=== PATIENT | female | born 1960 | race Caucasian/White ===

== ENCOUNTER 2018-02-23 13:58 | Observation (INO) | payer BC, SELFPAY ==
[2018-02-23 14:03] VITALS: BP 158/77; PULSE 95; RESP 18; TEMP 36.8; O2SAT 100; BMI 28.1
--- NOTE | 2018-02-23 14:16 | ED.CHESTPAIN ---
HPI - Chest Pain General Chief Complaint: Chest Pain Stated Complaint: Chest Pain Time Seen by Provider: 02/23/18 14:16 Source: patient Mode of arrival: EMS Limitations: no limitations History of Present Illness HPI narrative: 57-year-old female here for evaluation of chest pain. Patient states that approximately 930 this morning she had an onset of chest pain. She says it was a fairly sudden onset reaches its maximum intensity fairly quickly. She states that it occurred after she had a verbal argument with 1 of her neighbors. She states that it did improve somewhat but never really went away. She said that she went to go take a shower after the shower she had a recurrence of the pain worse than what it was before. Pain did not change with movement or palpation or deep breaths. She had no other symptoms with it to include palpitations or shortness of breath. She states the pain did radiate to the left side of her neck and down her left arm. She called EMS. She states that her pain significantly improved when EMS placed nitro paste on her. At the time of my evaluation she was essentially symptom free. She did receive an aspirin prior to arrival here in the emergency department by EMS Related Data Home Medications Medication Instructions Recorded Confirmed Calcium 1 tab PO DAILY 02/23/18 02/23/18 Probiotic 1 cap PO DAILY 02/23/18 02/23/18 multivitamin 1 tab PO DAILY 02/23/18 02/23/18 Allergies Allergy/AdvReac Type Severity Reaction Status Date / Time Penicillins Allergy Verified 02/23/18 14:23 Sulfa (Sulfonamide Allergy Verified 02/23/18 14:23 Antibiotics) Review of Systems Constitutional Denies fatigue and Denies fever(s) ENT Ears, Nose, Mouth, and Throat: Denies vertigo Cardiovascular Reports chest pain, Reports chest pain at rest, Denies diaphoresis, Denies irregular heart rhythm, Reports leg edema ( but this is not new for her), Denies palpitations and Denies dyspnea Respiratory Denies chest congestion, Denies cough, Denies dyspnea and Denies wheezing Gastrointestinal Gastrointestinal: Denies abdominal pain, Denies constipation, Denies diarrhea, Denies nausea and Denies vomiting Genitourinary Denies dysuria Musculoskeletal Denies myalgias and Denies arthralgias Integumentary/Breasts Denies lesions and Denies rash Neurologic Denies confusion and Denies vertigo Psychiatric Denies confusion Endocrine Denies fatigue and Denies palpitations Hematologic/Lymphatic Denies easy bleeding and Denies easy bruising Allergic/Immunologic Denies urticaria and Denies wheezing [facility] Medical History H/O: hysterectomy (Acute) Social History household members: spouse Smoking Status: Current every day smoker Exam Initial Vital Signs Initial Vital Signs: Vital Signs Temperature 98.2 F 02/23/18 14:03 Pulse Rate 95 H 02/23/18 14:03 Respiratory Rate 18 02/23/18 14:03 Blood Pressure 158/77 H 02/23/18 14:03 Pulse Oximetry 100 02/23/18 14:03 Const General: cooperative, healthy appearing, comfortable, well developed, well groomed and No acute distress Orientation: alert, awake and oriented x3 HENMT Head: normal to inspection, normocephalic and atraumatic Chest Chest: normal inspection of the chest Resp Effort & Inspection: normal respiratory effort Auscultation: clear to auscultation bilaterally Cardio Palpation: normal PMI Rate: regular rate Rhythm: regular rhythm Pulses: radial pulses present GI Inspection: normal to inspection and non-distended Palpation: soft, No firm and No tender Skin Lesions: no lesions Rashes: no rashes Neuro General: alert, awake and oriented x3 Cognition: normal cognition Speech: speech normal Motor: muscle tone normal throughout Sensory Exam: no sensory deficits noted Extrem General: normal to inspection and capillary refill normal Psych Appearance: grossly normal and well kempt Course Orders Ordered: ED Orders 02/23/18 14:05 Basic Metabolic Panel Stat Complete Blood Count AUTO DIFF Stat Partial Thromboplastin Time Stat Prothrombin Time INR Stat Troponin I Stat 02/23/18 14:17 XR chest 1V Stat EKG-12 Lead Stat 02/23/18 22:00 Troponin I Routine 02/24/18 05:00 Basic Metabolic Panel Routine Troponin I Routine 02/24/18 06:00 Lipid Panel w/ VLDL Calc Routine Aspirin (Aspirin Ec) 325 mg PO DAILY ANTHONY Nitroglycerin (Nitrostat) 0.4 mg SL [id number] PRN PRN Reason: Chest Pain Discontinued Medications Aspirin (Aspirin Chew) 324 mg PO NOW ONE Stop: 02/23/18 14:17 Last Admin: 02/23/18 14:24 Dose: Not Given Vital Signs - 8 hr 02/23/18 14:03 02/23/18 15:19 02/23/18 16:38 Temperature 98.2 F Pulse Rate 95 H 85 80 Respiratory Rate 18 12 17 Blood Pressure 158/77 H Blood Pressure [Left Arm] 105/56 L 105/64 Pulse Oximetry 100 98 100 02/23/18 17:00 Temperature 97.7 F Pulse Rate 77 Respiratory Rate 16 Blood Pressure 121/67 H Blood Pressure [Left Arm] Pulse Oximetry 100 MDM - Chest Pain Lab Data Attestation: I reviewed the patient's lab results. Result diagrams: 02/23/18 14:05 02/23/18 14:05 Lab Results 02/23/18 02/23/18 02/23/18 Range/Units 14:05 14:05 14:05 WBC 11.3 H (4.5-11.0) X10^3/uL RBC 4.99 (4.0-5.2) X10^6/uL Hgb 12.6 (12.0-16.0) g/dL Hct 38.5 (36-46) % MCV 77.1 L (80-100) fL MCH 25.2 L (26-34) PG MCHC 32.7 (30-36) % RDW 14.8 (11.6-14.8) % Plt Count 205 (150-400) X10^3/uL Neut % (Auto) 51.7 (50-75) % Lymph % (Auto) 38.9 (25-40) % [place] % (Auto) 7.5 (3-14) % Eos % (Auto) 1.3 L (2-4) % Baso % (Auto) 0.6 (0-2) % Neut # (Auto) 5900 (4472-3993) /uL PT 11.6 (10.1-12.7) SECONDS INR 1.1 (0.9-1.3) APTT 34 (26.4-36.2) SECONDS Sodium 144 (137-145) mmol/L Potassium 3.5 (3.4-5.1) mmol/L Chloride 108 H (98-107) mmol/L Carbon Dioxide 24 (22-32) mmol/L BUN 15 (7-17) mg/dL Creatinine 1.20 H (0.52-1.04) mg/dL Estimated GFR 46.5 L (>60) mL/min BUN/Creatinine Ratio 12.5 (6-22) Glucose 126 H (70-100) mg/dL Calcium 10.3 H (8.4-10.2) mg/dL Troponin I < 0.012 (0.01-0.034) ng/mL Imaging Data Chest x-ray: Radiologist's impression: PROCEDURE: XR CHEST 1V INDICATIONS: Chest pain TECHNIQUE: One view of the chest was acquired. COMPARISON: None. FINDINGS: Surgical changes and devices: None. Lungs and pleura: No pleural effusions or pneumothorax. Lungs are clear. Mediastinum: Mediastinal contours appear normal. Heart size is normal. Bones and chest wall: No suspicious bony lesions. Overlying soft tissues appear unremarkable. IMPRESSION: Normal chest. Source of chest pain not seen. Dictated by: Lazaro Dunn M.D. on 02/23/2018 at 14:57 Approved by: Lazaro Dunn M.D. on 02/23/2018 at 14:58 ECG Data Attestation: I personally reviewed and interpreted this ECG as follows: Prior ECG tracings: available for review Interpretation: EKG obtained by EMS showed sinus tachycardia with a rate of [address] T wave changes EKG obtained 23 February 2018 time 1407 hr sinus rhythm ventricular rate at 80 Normal axis normal intervals Normal QRS inverted T-waves in V1 and V2 nonspecific ST T wave changes MDM Narrative Medical decision making narrative: patient was chest pain-free at the time of my evaluation. She did have nitro paste on her anterior chest. patient was symptomatic at the time of the EKG obtained by EMS and asymptomatic at the time of the EKG here in the emergency department. There were no changes between these 2 EKGs. Initial troponin was negative however this was less than 6 hr after the onset of her symptoms. She did have retrosternal chest pressure that radiated to her neck and her left arm. Given her history and physical exam and nonspecific EKG changes will admit to the hospital for further cardiac evaluation. Discussed the case with Dr. Aquino who accepts the patient in observation. I discussed admission with the patient and her who is at bedside who both expressed understanding and agreement with plan. Discharge Plan Departure Patient Disposition: Admitted as Observation Clinical Impression: Chest pain Discharge Date/Time: 02/23/18 17:09 Interventions: ED Discharge Assessment Last Done: 02/23/18 17:07 Admit Date/Time: 02/23/18 16:34 Admit Provider: Wellington Aquino
[2018-02-23 14:30] LABS: INR 1.1 (0.9-1.3); Prothrombin Time 11.6 SECONDS (10.1-12.7)
[2018-02-23 14:32] LABS: PTT Partial Thromboplastin Tim 34 SECONDS (26.4-36.2)
[2018-02-23 14:33] LABS: Add Manual Diff / Slide Review NO; Basophils Percent Auto 0.6 % (0-2); Eosinophils Percent Auto 1.3 % (2-4); Hematocrit 38.5 % (36-46); Hemoglobin 12.6 g/dL (12.0-16.0); Lymphocytes Percent Auto 38.9 % (25-40); Mean Corpuscular HGB Conc 32.7 % (30-36); Mean Corpuscular Hemoglobin 25.2 PG (26-34); Mean Corpuscular Volume 77.1 fL (80-100); Monocytes Percent Auto 7.5 % (3-14); Neutrophils Absolute Auto 5900 /uL (3000-5900); Neutrophils Percent Auto 51.7 % (50-75); Platelet Count 205 X10^3/uL (150-400); Red Blood Cell Count 4.99 X10^6/uL (4.0-5.2); Red Cell Distribution Width 14.8 % (11.6-14.8); White Blood Cell Count 11.3 X10^3/uL (4.5-11.0)
[2018-02-23 14:34] LABS: BUN Creatinine Ratio 12.5 (6-22); Blood Urea Nitrogen 15 mg/dL (7-17); Calcium 10.3 mg/dL (8.4-10.2); Carbon Dioxide 24 mmol/L (22-32); Chloride 108 mmol/L (98-107); Estimated Glomerular Filt Rate 46.5 mL/min (>60); Glucose 126 mg/dL (70-100); HEMOLYSIS < 15 (0-50); Potassium 3.5 mmol/L (3.4-5.1); Sodium 144 mmol/L (137-145)
[2018-02-23 14:53] LABS: Troponin I < 0.012 ng/mL (0.01-0.034)
[2018-02-23 15:19] VITALS: BP 105/56; PULSE 85; RESP 12; O2SAT 98
[2018-02-23 16:38] VITALS: BP 105/64; PULSE 80; RESP 17; O2SAT 100
[2018-02-23 17:00] VITALS: BP 121/67; PULSE 77; RESP 16; TEMP 36.5; O2SAT 100; BMI 28.1
--- NOTE | 2018-02-23 17:06 | PC.NURSE ---
per provider patient ok to go upstairs without telemetry. no new orders at this time.
--- NOTE | 2018-02-23 17:56 | PC.NURSE ---
Pt admitted to room 212 from [facility] awake and alert. Taking diet well with family present @ bedside. Pt denies chest pain. Was instructed to alert staff if pain returns. Pt acknowledges understanding and agreement.
--- NOTE | 2018-02-23 19:01 | PM.HP.1 ---
History of Present Illness Date Patient Seen: 02/23/18 Time Patient Seen: 19:01 Chief complaint: CHEST PAIN Narrative: 57-year-old female whose had chest pain today initially onset while she was arguing with a neighbor and then the pain went away and then it came back again after she was in the house for about 0.5 hr the pain is a substernal radiation to the neck and this persisted until she went to the emergency room and got better with nitro paste. Currently without chest pain. No prior history of heart disease no other complaints. Patient History Medical History H/O: hysterectomy (Acute) Family & Social History Social History: household members spouse Prior Living Arrangements RV Safety & Behavioral: Feels Safe in Current Yes Environment Been Physically Hurt or No Threatened By a Person Suicidal Ideation Description None Suicide Plan Description No Plan Tobacco & Substance use: Tobacco type cigarettes Smoking Status Current every day smoker Smoking packs per day 0.5 alcohol intake frequency holiday/special occasion Substance Use Type does not use Meds Home Medications Medication Instructions Recorded Confirmed Type Calcium 1 tab PO DAILY 02/23/18 02/23/18 History Probiotic 1 cap PO DAILY 02/23/18 02/23/18 History multivitamin 1 tab PO DAILY 02/23/18 02/23/18 History Allergies Allergy/AdvReac Type Severity Reaction Status Date / Time Penicillins Allergy Verified 02/23/18 14:23 Sulfa (Sulfonamide Allergy Verified 02/23/18 14:23 Antibiotics) Review of Systems Review of Systems All systems reviewed & are unremarkable except as noted in HPI and below Exam Vital Signs (past 8 hours): - 02/23/18 14:03 02/23/18 15:19 02/23/18 16:38 Temperature 98.2 F Pulse Rate 95 H 85 80 Respiratory Rate 18 12 17 Blood Pressure 158/77 H Blood Pressure [Left Arm] 105/56 L 105/64 Pulse Oximetry 100 98 100 02/23/18 17:00 Temperature 97.7 F Pulse Rate 77 Respiratory Rate 16 Blood Pressure 121/67 H Blood Pressure [Left Arm] Pulse Oximetry 100 Oxygen Delivery Method Room Air Narrative Exam Narrative: Pleasant female no acute distress HEENT exam unremarkable Neck is supple no bruits no JVD no thyromegaly Lungs are clear to auscultation Heart regular rhythm Abdomen obese nontender bowel sounds present Lower extremities no edema Skin warm and dry Neuro exam awake alert oriented x3 speech normal no focal motor or sensory deficits Objective Labs Result Diagrams: 02/23/18 14:05 02/23/18 14:05 Labs: Laboratory Results - last 24 hr 02/23/18 02/23/18 02/23/18 14:05 14:05 14:05 WBC 11.3 H RBC 4.99 Hgb 12.6 Hct 38.5 MCV 77.1 L MCH 25.2 L MCHC 32.7 RDW 14.8 Plt Count 205 Neut % (Auto) 51.7 Lymph % (Auto) 38.9 [place] % (Auto) 7.5 Eos % (Auto) 1.3 L Baso % (Auto) 0.6 Neut # (Auto) 5900 PT 11.6 INR 1.1 APTT 34 Sodium 144 Potassium 3.5 Chloride 108 H Carbon Dioxide 24 BUN 15 Creatinine 1.20 H Estimated GFR 46.5 L BUN/Creatinine Ratio 12.5 Glucose 126 H Calcium 10.3 H Troponin I < 0.012 Assessment & Plan Plan: Assessment/Plan Narrative: One. Chest pain nonspecific T-wave inversion V1 V2 no other acute changes. Troponin initially negative. Placed patient will be placed on observation for rule out LA per serial troponin will be checked and patient on telemetry. Probable discharge tomorrow morning. Quality VTE Deep Vein Thrombosis/Pulmonary Embolism Present on Admission: No
[2018-02-23 21:13] VITALS: BP 120/67; PULSE 72; RESP 16; TEMP 37; O2SAT 97
[2018-02-23] MEDS: NICOTINE 14 PATCH 14 MG TOP (21:35)
[2018-02-23] MEDS: SODIUM CHLORIDE 0.9% FLUSH 10 ML IV (21:36)
[2018-02-23 22:54] LABS: Troponin I < 0.012 ng/mL (0.01-0.034)
[2018-02-24] VITALS: BP 112/72; PULSE 77; RESP 16; TEMP 36.6; O2SAT 96
--- NOTE | 2018-02-24 00:39 | PC.NURSE ---
Addendum entered by Ramona Connelly R.N. 02/24/18 06:12: Slept most of night. Continued in SR on telemetry reading at 0400. Does complain of 6/10 headache this morning but declines pain medication. Believes headache related to lack of food as states didn't eat much yesterday; provided with snack since lab has been here to draw blood for lipid panel this morning. Original Note: Patient is alert and oriented. Breath sounds CTA with RA sat of 96%. HRR and was SR at 0000 telemetry reading. Denies nausea. BT present and abdomen is soft. Independent with mobility. Denies any urinary problems/incontinence. Denies any pain. Is fasting for lab draw in a.m.; verbalizes understanding. Fall risk score is low.
[2018-02-24 05:54] VITALS: BP 111/74; PULSE 78; RESP 16; TEMP 36.3; O2SAT 96
[2018-02-24 06:04] LABS: HEMOLYSIS < 15 (0-50)
[2018-02-24 06:10] LABS: BUN Creatinine Ratio 13.6 (6-22); Blood Urea Nitrogen 15 mg/dL (7-17); Calcium 9.4 mg/dL (8.4-10.2); Carbon Dioxide 26 mmol/L (22-32); Chloride 108 mmol/L (98-107); Estimated Glomerular Filt Rate 51.4 mL/min (>60); Glucose 102 mg/dL (70-100); Sodium 145 mmol/L (137-145)
[2018-02-24 06:23] LABS: Cholesterol 195 mg/dL (140-199); HDL Cholesterol 42 mg/dL (40-60); LDL Cholesterol Calculated 117 mg/dL (<100); Triglycerides 179 mg/dL (35-150); VLDL Cholesterol Calculated 36 mg/dL (2-30)
[2018-02-24 06:25] LABS: Troponin I < 0.012 ng/mL (0.01-0.034)
[2018-02-24 08:34] VITALS: BP 119/70; PULSE 78; RESP 16; TEMP 36.6; O2SAT 96
--- NOTE | 2018-02-24 08:52 | CM.DANOTE ---
Discharge Planning/Care Management DCP: assessment: case received, EMR reviewed and met with pt. Introduced self and role. Pt is a 57 year old female who admitted to care of hospitalist team [id number] yesterday. Payer: [employer] Pt confirms that Dr. Aquino is testing for a ? SC and she is hopeful all will be fine and she will be able to go home today. Pt says her is here, has gone to the cafeteria with her daughter Pierre (works as records analysis manager of [employer]). P: follow prn for any d/c needs that may arise. Home today if SC is ruled out. CM Discharge Assessment Start: 02/24/18 08:50 Freq: Status: Active Protocol: Document 02/24/18 08:50 ITV (Rec: 02/24/18 08:51 ITV [id number]) Discharge Planning Assessment History Provided By Patient Medical Record Is this patient on Medicare? No Household Members spouse Independent with ADL's Yes Is patient alert and oriented? Yes Caregiver for Another No Review Status In Process Next Review Type Continued Stay Review
--- NOTE | 2018-02-24 08:56 | PM.DS.1 ---
History of Present Illness Date Patient Seen: 02/24/18 Time Patient Seen: 08:56 Chief complaint: CHEST PAIN Narrative: 57-year-old female whose had chest pain today initially onset while she was arguing with a neighbor and then the pain went away and then it came back again after she was in the house for about 0.5 hr the pain is a substernal radiation to the neck and this persisted until she went to the emergency room and got better with nitro paste which was administered in route by the EMS. Currently without chest pain. No prior history of heart disease no other complaints. Discharge Providers Date of admission: 02/23/18 16:34 Discharge provider: OWEN Ortiz Summary Discharge Diagnosis: 1. Chest pain 2. Tobacco dependence Hospital Course: This is a summary of an overnight stay for this pleasant 57-year-old female patient who was admitted with complaints of chest pain. EKG showed T-wave inversions in leads V1 and V2 and nonspecific ST T wave changes. No other acute changes. She has been pain free since admission to the [facility] and she has had 3 negative troponin levels. The only change her medications that she has been placed on aspirin 81 mg q.day. She will need to be followed up with her primary care provider for an outpatient exercise stress test. She has also been given information about smoking cessation. Status at Discharge Functional status at discharge: independent ambulation Overall status at discharge: patient is back to baseline Time Spent with Patient Less than 30 minutes Exam Vital Signs (past 8 hours): - 02/24/18 05:54 02/24/18 08:34 Temperature 97.3 F L 98 F Pulse Rate 78 78 Respiratory Rate 16 16 Blood Pressure 111/74 119/70 Pulse Oximetry 96 96 Oxygen Delivery Method Room Air Oxygen Flow Rate 0 Narrative Exam Narrative: Sitting up in bed pain-free. Const General: cooperative, healthy appearing, comfortable, well developed and well groomed Nutritional Appearance: average body habitus Orientation: alert, awake and oriented x3 HENMT Head: normal to inspection, normocephalic and atraumatic Eyes General: appearance normal, both eyes and all related structures Pupils: PERRL Neck Neck: normal visual inspection, trachea midline and supple Other: No JVD or lymphadenopathy Chest Chest: normal inspection of the chest Resp Effort & Inspection: normal respiratory effort and able to speak in complete sentences Auscultation: clear to auscultation bilaterally Cardio Rate: regular rate Rhythm: regular rhythm Heart Sounds: S1 normal and S2 normal Other: Telemetry shows no unusual cardiac events. Normal sinus rhythm 80s to 90s. GI Inspection: normal to inspection Palpation: soft Auscultation: normal bowel sounds Other: No masses or tenderness Other: Voiding independently Back/Spine/Pelvis Back: normal to inspection Skin General: no rashes or lesions noted, dry skin and warm Neuro General: alert, awake and oriented x3 Cognition: normal cognition Speech: speech normal Gait: normal gait Motor: muscle tone normal throughout Sensory Exam: no sensory deficits noted Extrem General: normal to inspection, capillary refill normal, no pedal edema and no calf tenderness Psych Appearance: grossly normal Mental Status: mental status grossly normal Speech and Movement: speech and movement normal Mood: congruent mood Affect: normal affect Attitude: cooperative Thought Process: normal Thought Content: normal Judgment: judgment good Objective Labs Result Diagrams: 02/23/18 14:05 02/24/18 05:45 Labs: Laboratory Results - last 24 hr 02/23/18 02/23/18 02/23/18 14:05 14:05 14:05 WBC 11.3 H RBC 4.99 Hgb 12.6 Hct 38.5 MCV 77.1 L MCH 25.2 L MCHC 32.7 RDW 14.8 Plt Count 205 Neut % (Auto) 51.7 Lymph % (Auto) 38.9 [place] % (Auto) 7.5 Eos % (Auto) 1.3 L Baso % (Auto) 0.6 Neut # (Auto) 5900 PT 11.6 INR 1.1 APTT 34 Sodium 144 Potassium 3.5 Chloride 108 H Carbon Dioxide 24 BUN 15 Creatinine 1.20 H Estimated GFR 46.5 L BUN/Creatinine Ratio 12.5 Glucose 126 H Calcium 10.3 H Troponin I < 0.012 Triglycerides Cholesterol LDL Cholesterol, Calc VLDL Cholesterol HDL Cholesterol 02/23/18 02/24/18 02/24/18 22:13 05:35 05:45 WBC RBC Hgb Hct MCV MCH MCHC RDW Plt Count Neut % (Auto) Lymph % (Auto) [place] % (Auto) Eos % (Auto) Baso % (Auto) Neut # (Auto) PT INR APTT Sodium 145 Potassium 4.0 Chloride 108 H Carbon Dioxide 26 BUN 15 Creatinine 1.10 H Estimated GFR 51.4 L BUN/Creatinine Ratio 13.6 Glucose 102 H Calcium 9.4 Troponin I < 0.012 < 0.012 Triglycerides 179 H Cholesterol 195 LDL Cholesterol, Calc 117 H VLDL Cholesterol 36 H HDL Cholesterol 42 PROCEDURE: XR CHEST 1V INDICATIONS: Chest pain TECHNIQUE: One view of the chest was acquired. COMPARISON: None. FINDINGS: Surgical changes and devices: None. Lungs and pleura: No pleural effusions or pneumothorax. Lungs are clear. Mediastinum: Mediastinal contours appear normal. Heart size is normal. Bones and chest wall: No suspicious bony lesions. Overlying soft tissues appear unremarkable. IMPRESSION: Normal chest. Source of chest pain not seen. Dictated by: Lazaro Dunn M.D. on 02/23/2018 at 14:57 Approved by: Lazaro Dunn M.D. on 02/23/2018 at 14:58 Discharge Plan Discharge Plan Patient Disposition: Home, Self-Care Discharge comment: Will need to follow up with primary care provider for outpatient exercise stress test. Provider Discharge Instructions Diet: Diet as Tolerated Diet comment: Heart healthy/cardiac diet Activity: Up ad isai Oxygen: Room air Wound Care Report to your healthcare provider any signs of infection, such as:: increased pain Discharge Data Attending Provider: Wellington Aquino Admit Date/Time: 02/23/18 16:34 Quality VTE Deep Vein Thrombosis/Pulmonary Embolism Present on Admission: No
[2018-02-24] MEDS: ASPIRIN EC 325 MG TABLET PO (09:09)
== END 2018-02-24 10:52 | disposition home or self-care (01) ==
LOC: ED 15:42 → AC 16:36
PROVIDERS: Admitting Provider Internal Medicine; Emergency Provider Emergency Medicine; Visit Provider Internal Medicine
DX: R07.9 Chest pain, unspecified (principal); F17.210 Nicotine dependence, cigarettes, uncomplicated
CPT/HCPCS: 36415; 71045; 80048; 80061; 84484; 85025; 85610; 85730; 93005; 93041; 99283; 99285; G0378

== ENCOUNTER → 2018-05-10 08:02 | Outpatient (CLI) | payer BC, SELFPAY ==
--- NOTE | 2018-05-10 09:32 | PM.TREADMILL ---
Cardiac Stress Test Report Referral & Results Date Patient Seen: 05/10/18 Requesting provider: Brendon Moran Indication: Chest pain Rest ECG: Unremarkable Procedure Note: Today following both written and verbal informed consent the patient was exercised according to a standard [place] protocol patient went for a total of 4 min 8 sec achieving a maximum heart rate of 155 maximum systolic blood pressure of 150 to. This is approximately 7.0 METS. Exercise was terminated at this point because of 3+ chest discomfort and inability of patient to continue. Patient was also given Cardiolite through a previously started Hep-Lock IV by the food equipment service technician approximately 1 minute prior to the cessation of exercise. With exercise patient did developed initially upsloping then it became flat ST segment depression the maximize to just over mm in the inferior leads as well as some more minor changes in leads V4 through V6, 1 in recovery these became flat downsloping then frankly downsloping ST segment changes in the same leads Rare PVC was identified only in recovery Normal heart rate and blood pressure response to exercise Functional aerobic impairment rated 25% on the sedentary scale Impression: ECG evidence of ischemia in inferior leads with some changes in leads V4 through V6 as well. This did coincide with onset of patient's symptoms Perfusion imaging will also be available and reported separately Patient had diminishing symptoms prior to the discontinuation of the monitoring and had returned to normal. Please note: Actual ECG tracings can be found in the PACS system.
--- NOTE | 2018-05-10 09:35 | P.PCN_ITS ---
Cardiac Stress Test Report Referral & Results Date Patient Seen: 05/10/18 Requesting provider: Brendon Moran Indication: Chest pain Rest ECG: Unremarkable Procedure Note: Today following both written and verbal informed consent the patient was exercised according to a standard [place] protocol patient went for a total of 4 min 8 sec achieving a maximum heart rate of 155 maximum systolic blood pressure of 150 to. This is approximately 7.0 METS. Exercise was terminated at this point because of 3+ chest discomfort and inability of patient to continue. Patient was also given Cardiolite through a previously started Hep-Lock IV by the nuclear radiation engineer approximately 1 minute prior to the cessation of exercise. With exercise patient did developed initially upsloping then it became flat ST segment depression the maximize to just over mm in the inferior leads as well as some more minor changes in leads V4 through V6, 1 in recovery these became flat downsloping then frankly downsloping ST segment changes in the same leads Rare PVC was identified only in recovery Normal heart rate and blood pressure response to exercise Functional aerobic impairment rated 25% on the sedentary scale Impression: ECG evidence of ischemia in inferior leads with some changes in leads V4 through V6 as well. This did coincide with onset of patient's symptoms Perfusion imaging will also be available and reported separately Patient had diminishing symptoms prior to the discontinuation of the monitoring and had returned to normal. Please note: Actual ECG tracings can be found in the PACS system.
--- NOTE | 2018-05-11 13:29 | DI.NM.S_ITS ---
DATE OF SERVICE: 05/10/2018 PROCEDURE: Exercise treadmill stress and rest myocardial perfusion imaging with gating to assess ejection fraction, regional wall motion. ORDERING PHYSICIAN: Brendon Moran MD INDICATIONS: The patient is a 57-year-old female with recurrent exertional chest discomfort. EXERCISE TREADMILL TESTING: The patient was able to exercise for 4 minutes 8 seconds on a standard [place] protocol, suggesting moderate-severely reduced exercise capacity with an MELY of +38% on the active scale. She had a normal heart rate and blood pressure response to exercise, achieving a maximum heart rate of 155 BPM (95% of her predicted maximum). She developed chest pressure with stress that caused her to stop. Her resting ECG shows sinus rhythm and normal ST segments. With stress, there is considerable motion artifact, but there appears to be 1 to 1.5 mm of flat upsloping ST depression in the inferolateral leads that becomes downsloping in recovery, concerning for ischemic response. There were no arrhythmias. At 3 minutes 16 seconds of exercise, at a heart rate of 153 BPM, the patient was injected with 26.9 mCi of technetium-99 Myoview and was imaged 15 minutes later using a gated SPECT acquisition protocol. She returned the following day and was reinjected with an additional 24 mCi of technetium-99 Myoview and was imaged 45 minutes later, again using a gated SPECT acquisition. FINDINGS: 1. Raw data: There is fairly good myocardial tracer uptake with mild breast shadows noted. The lung-heart ratio is normal at 0.32 and the TID ratio is normal at 0.63. 2. Quantitated gated SPECT: Post stress ejection fraction is calculated to be 92% but is likely an overestimate. Visually, this appears to be around 75% to 80%. There is no obvious focal wall motion abnormality, although there may be very subtle hypokinesis noted in the distal anterior wall extending out to the apex. The resting ejection fraction is estimated at 77% without any focal wall motion abnormality with a normal resting end-diastolic volume of 82 mL. 3. Myocardial perfusion imaging: Post-stress supine images show a moderate- sized perfusion defect in the [id number] anterior wall extending into the anterior septum and into the apex that becomes more severe apically. There are no other perfusion defects. This defect persists on the prone images, consistent with a true perfusion defect. The resting images show a subtle perfusion defect in this location but with significant improvement. CONCLUSION: 1. Abnormal myocardial perfusion study. 2. Moderate-sized, predominantly reversible although slightly fixed perfusion defect in the eiy-ie-dijaet anterior wall including the apex, consistent with myocardial ischemia in the [id number]-[id number] LAD distribution. The total volume of myocardium involved is estimated at 12%. 3. Normal left ventricular systolic function with possible subtle distal anteroapical hypokinesis on the post stress images. 4. Moderate-severely reduced exercise capacity with provocable chest pressure and ST segment shifts consistent with ischemia. Sveta Welsh - RS/rj/kv doc#: [id number]/job#: [id number] dd: 05/11/2018 12:55:00 dt: 05/11/2018 13:07:00 DICTATING MD/COPIES TO: Saurabh Gregorio MD ; Brendon Moran MD COPIES MNE: GURDEEP GONZALES
== END ==
PROVIDERS: PCP Family Medicine; Visit Provider Hospitalist
DX: I25.9 Chronic ischemic heart disease, unspecified (principal); R07.9 Chest pain, unspecified
CPT/HCPCS: 78452; 93016; 93017; 93018; A9502

== ENCOUNTER 2018-06-08 15:52 | Emergency (ER) | payer BC, SELFPAY ==
[2018-06-08 15:59] VITALS: BP 148/87; PULSE 94; RESP 16; O2SAT 100; BMI 25.9
[2018-06-08 16:11] VITALS: BP 148/87; PULSE 94; RESP 16; O2SAT 100; BMI 25.9
--- NOTE | 2018-06-08 16:24 | ED.EPISTAXIS ---
HPI - Epistaxis <Ebonie Moore PA-C - Last Filed: 06/08/18 22:03> General Chief complaint: Nasal Problem Stated complaint: BLOODY NOSE FROM BLOOD THINNERS Time Seen by Provider: 06/08/18 16:24 Source: patient Mode of arrival: ambulatory Limitations: no limitations History of Present Illness HPI Narrative: This 57-year-old female complains of persistent right-sided nosebleed today. She states that she has had nasal congestion this week. She got up and blew her nose and it started bleeding on the right side. She tried ice and nose clip at home. Will stop for a bit, then states it starts again when she stands up. She states she also has quite a bit of bruising. Denies blood in the stools or hematuria or any other new bleeding. She states that she recently had a cardiac stent placed and has been on ASA and Plavix and has had the increased bruising since then. She denies any trauma, other upper respiratory complaints aside from congested ears, or other new symptoms today such as dyspnea. Related Data Home Medications Medication Instructions Recorded Confirmed Calcium 1 tab PO DAILY 02/23/18 06/08/18 Probiotic 1 cap PO DAILY 02/23/18 06/08/18 multivitamin 1 tab PO DAILY 02/23/18 06/08/18 atorvastatin 40 mg PO DAILY 06/08/18 06/08/18 Previous Rx's Medication Instructions Recorded aspirin 81 mg PO DAILY #90 tab 02/24/18 Allergies Allergy/AdvReac Type Severity Reaction Status Date / Time Penicillins Allergy Verified 02/23/18 14:23 Sulfa (Sulfonamide Allergy Verified 02/23/18 14:23 Antibiotics) Review of Systems <Ebonie Moore PA-C - Last Filed: 06/08/18 22:03> Review of Systems All systems reviewed & are unremarkable except as noted in HPI and below Exam <Ebonie Moore PA-C - Last Filed: 06/08/18 22:03> Narrative Exam Narrative: GENERAL APPEARANCE: Patient sitting comfortably, in no distress. EYES: PERRL, EOMI. EARS: Normal auditory canals, TMS intact with normal light reflexes. NOSE: Nasal mucosa is moderately edematous. On the left side, there is rough nasal mucosa especially medially, no visible active bleeding ORAL CAVITY: Normal oropharynx. THROAT: Clear. LUNGS: Clear to auscultation bilaterally, cough on exam. HEART: RRR without murmur, nl S1, S2, no S3 or S4. Initial Vital Signs Initial Vital Signs: Vital Signs Pulse Rate 94 H 06/08/18 15:59 Respiratory Rate 16 06/08/18 15:59 Blood Pressure 148/87 H 06/08/18 15:59 Pulse Oximetry 100 06/08/18 15:59 <Mega Ospina DO - Last Filed: 06/09/18 15:30> Initial Vital Signs Initial Vital Signs: Vital Signs Pulse Rate 94 H 06/08/18 15:59 Respiratory Rate 16 06/08/18 15:59 Blood Pressure 148/87 H 06/08/18 15:59 Pulse Oximetry 100 06/08/18 15:59 Course <Ebonie Moore PA-C - Last Filed: 06/08/18 22:03> Additional Information: Patient is able to ambulate comfortably but had mild recurrent nosebleeds x 2 after about 15m. After Afrin x 2 Dr. Ospina was able to cauterize one area and appeared resolved. She agreed to return for packing if recurrent Orders Ordered: Discontinued Medications Oxymetazoline HCl (Afrin) 2 sprays NASAL NOW ONE Stop: 06/08/18 16:44 Last Admin: 06/08/18 17:12 Dose: 2 sprays Vital Signs - 8 hr 06/08/18 15:59 06/08/18 16:11 06/08/18 17:34 Temperature 97.9 F Pulse Rate 94 H 94 H Respiratory Rate 16 16 Blood Pressure 148/87 H 148/87 H Pulse Oximetry 100 100 <Mega Ospina DO - Last Filed: 06/09/18 15:30> Orders Ordered: Discontinued Medications Oxymetazoline HCl (Afrin) 2 sprays NASAL NOW ONE Stop: 06/08/18 16:44 Last Admin: 06/08/18 17:12 Dose: 2 sprays Vital Signs - 8 hr 06/08/18 15:59 06/08/18 16:11 06/08/18 17:34 Temperature 97.9 F Pulse Rate 94 H 94 H Respiratory Rate 16 16 Blood Pressure 148/87 H 148/87 H Pulse Oximetry 100 100 Discharge Plan Departure Patient Disposition: Home Clinical Impression: Epistaxis Discharge Date/Time: 06/08/18 18:35 Interventions: ED Discharge Assessment Last Done: 06/08/18 18:34 Instructions: DI for Nosebleed Activity Restrictions/Additional Instructions: If your nose starts to bleed again, you can apply a little of the decongestant nasal spray to cotton and put in your nostril, then use the nose clip. Leave on for about 10 minutes, then remove the cotton and you can keep the nose clip on for 20-30 minutes. The tissue inside of your nose is irritated, but I cannot see 1 vessel that is bleeding. Your also fairly congested. Please avoid blowing your nose or manipulating at all. Return if you have profuse bleeding, or the bleeding will not stop within 30 min. Prescriptions: No Action multivitamin Tablet 1 tab PO DAILY RF: 0 Calcium 1 tab PO DAILY RF: 0 Probiotic 1 cap PO DAILY RF: 0 aspirin 81 mg tablet,chewable 81 mg PO DAILY Qty: 90 RF: 3 atorvastatin 40 mg tablet 40 mg PO DAILY RF: 0 Referrals: Luis Rodriguez MD [Primary Care Provider] - <Mega Ospina DO - Last Filed: 06/09/18 15:30> Cosign ED Attending Tonyaature Attestation: I was immediately available in the department for consultation. Documentation has been reviewed. I agree with assessment and plan.
[2018-06-08] MEDS: OXYMETAZOLINE NASAL SPRAY 15 ML 2 SPRAYS NASAL (17:12)
--- NOTE | 2018-06-08 17:21 | PC.NURSE ---
Attempt to d/c pt. Bleeding has resumed. Per Provider order, put Afrin covered cotton ball in left nare and put nasal clip in place. Pt reminded to keep clip in place and not to wipe at nose.
[2018-06-08 17:34] VITALS: TEMP 36.6
--- NOTE | 2018-06-08 18:10 | PC.NURSE ---
Took patient clamp off at 1749 no bleeding until 1805 when patient bent over to get up to go. Provider aware.
== END 2018-06-08 18:35 | disposition home or self-care (01) ==
PROVIDERS: Emergency Provider Internal Medicine; PCP Family Medicine
DX: R04.0 Epistaxis (principal); Z79.01 Long term (current) use of anticoagulants
CPT/HCPCS: 30901; 99282

== ENCOUNTER → 2020-11-24 08:57 | Outpatient (CLI) | payer BC, SELFPAY ==
--- NOTE | 2020-11-24 08:59 | DI.ECHO.S_ITS ---
[facility]---------+ [facility] +---------+ : : [address] : : : : [id number] : : : : Phone: [phone] Echocardiogram Report + + :Name: DEISI LEMUS Study Date: 11/24/2020 Height: 67 in : :[facility] ReadingLocation: Weight: 164 lb : : Gender: Female BSA: 1.9 m2 : :: 1960 Age: 59 yrs BP: 150/86 mmHg: :Reason For Study: CAD : :Ordering Physician: Maxim : :Rita Benito Performed By: Ponce Ventura : :Referring: MAXIM BENITO : + + Interpretation Summary The ejection fraction is estimated to be 55-60%. There is no significant valvular heart disease. Procedure: A two-dimensional transthoracic echocardiogram with color flow and Doppler was performed. The study quality was technically adequate. There is no prior echocardiogram noted for this patient. The patient was in sinus rhythm with heart rates between 69-83 bpm during the exam. Left Ventricle: The left ventricle is normal in size and wall thickness. Left ventricular systolic function is normal. The ejection fraction is estimated to be 55-60%. There are no focal wall motion abnormalities. Diastolic parameters suggest probable normal left ventricular diastolic function and normal filling pressures. Right Ventricle: The right ventricle is normal in size and function. Atria: Both atria are normal in size. There is no Doppler evidence for an interatrial shunt. Mitral Valve: The mitral valve is normal in structure and function. There is trace mitral regurgitation. Aortic Valve: The aortic valve is grossly normal. No aortic regurgitation is present. Tricuspid Valve: The tricuspid valve is normal in structure and function. There is a trace or physiologic amount of tricuspid regurgitation. Pulmonary artery pressures cannot be estimated because of the lack of a measurable TR jet velocity but the IVC suggests a CVP of around 3 mmHg. Pulmonic Valve: The pulmonic valve is not well visualized. Great Vessels: The aortic root is normal size. The dimensions of the ascending aorta are normal. The IVC is of normal diameter and collapses greater than 50% with a sniff. This suggests a low right atrial pressure of 3 mm Hg. Pericardium/ Pleura There is no pericardial effusion. There is no pleural effusion. MMode/2D Measurements & Calculations LVIDd: 4.6 cm LVOT diam: 1.9 cm LVIDs: 3.1 cm Ao root diam: 2.9 cm FS: 33.4 % asc Aorta Diam: 2.9 cm IVSd: 0.85 cm LVPWd: 0.83 cm LV lacy. diameter/BSA (cm/m^2): 2.5 LV sys. diameter/BSA (cm/m^2): 1.7 LA A2 area: 13.0 cm2 RA area: 9.4 cm2 LA A4 area: 14.5 cm2 IVC diam: 2.1 cm LA length (vol): 4.5 cm LA vol: 35.7 ml LA vol index: 19.2 ml/m2 RVD1 (basal): 2.6 cm TAPSE: 2.2 cm Doppler Measurements & Calculations Ao V2 max: 130.1 cm/sec LVOT Max Mike: 133.8 cm/sec Ao V2 mean: 85.7 cm/sec LV V1 max P.2 mmHg Ao max P.8 mmHg LV V1 VTI: 29.7 cm Ao mean P.3 mmHg ALPESH(I,D): 3.1 cm2 Ao V2 VTI: 27.7 cm ALPESH(V,D): 2.9 cm2 sev ratio: 1.1 ALPESH indexed to BSA (cm^2/m^2): 1.7 MV E max mike: 98.7 cm/sec PA V2 max: 80.1 cm/sec MV A max mike: 81.0 cm/sec PA V2 mean: 58.6 cm/sec MV E/A: 1.2 PA mean P.5 mmHg Med Peak E' Mike: 9.6 cm/sec PA pr(Accel): 20.9 mmHg E/E' med: 10.3 Lat Peak E' Mike: 12.2 cm/sec E/E' lat: 8.1 E/e' average: 9.2 MV dec time: 0.19 sec SV(LVOT): 85.2 ml Reading Physician:10:[id number] AM
== END ==
PROVIDERS: Referring Provider Internal Medicine Cardiovascular Disease; Visit Provider Internal Medicine Cardiovascular Disease
DX: I25.10 Atherosclerotic heart disease of native coronary artery without angina pectoris (principal)
CPT/HCPCS: 93306